=== PATIENT | female | born 1965 | race Two or more races ===

== ENCOUNTER 2019-03-23 19:21 | Inpatient (IN) | payer MEDICARE ==
[~2019-03-23] VITALS: Ht 165.1 cm; Wt 82.6 kg
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
[2019-03-23] MEDS ORDERED: SODIUM CHLORIDE 0.9% 1000ML 1,000 ML IV STA (19:55)
[2019-03-23] MEDS ORDERED: PANTOPRAZOLE 40 MG 10ML VIAL IV NR (20:00)
[2019-03-23] MEDS ORDERED: MORPHINE SULFATE INJ 4 MG/ML INJ 1ML IV NR (20:00)
[2019-03-23] MEDS ORDERED: ONDANSETRON HCL INJ 2MG/ML 2ML 2 MG/ML VIAL IV NR (20:00)
[2019-03-23 20:32] LABS: BASOPHILS # (AUTO) 0.1 (0.0-0.1); BASOPHILS % 0.7 % (0.0-1.0); EOSINOPHILS # (AUTO) 0.2 (0.0-0.4); EOSINOPHILS % 1.4 % (0.0-6.0); HEMATOCRIT 43.1 % (34.2-44.1); HEMOGLOBIN 14.4 g/dL (12.0-16.0); LYMPHOCYTES # (AUTO) 2.3 (1.0-3.2); LYMPHOCYTES % 22.3 % (18.0-39.1); MEAN CORPUSCULAR HEMOGLOBIN 27.9 pg (28-32); MEAN CORPUSCULAR HGB CONC 33.4 g/dL (31-35); MEAN CORPUSCULAR VOLUME 83.4 fL (81-99); MONOCYTES # (AUTO) 0.9 (0.2-0.8); MONOCYTES % 8.2 % (4.4-11.3); NEUTROPHILS % 67.1 % (38.7-80.0); PLATELET COUNT 343 x10e3/uL (140-360); RED BLOOD COUNT 5.17 x10e6/uL (3.6-5.1); RED CELL DISTRIBUTION WIDTH 13.2 % (11.7-14.4)
[2019-03-23 20:36] LABS: CLARITY,URINE SL CLOUDY (CLEAR); COLOR,URINE YELLOW (YELLOW)
[2019-03-23 20:37] LABS: BILIRUBIN,URINE NEGATIVE (NEGATIVE); KETONES,URINE NEGATIVE (NEGATIVE); LEUKOCYTE ESTERASE ,URINE NEGATIVE (NEGATIVE); NITRITE,URINE NEGATIVE (NEGATIVE); PROTEIN,URINE DIPSTICK NEGATIVE (NEGATIVE); URINE UROBILINOGEN 0.2 mg/dL (0.2 - 1)
[2019-03-23 20:46] LABS: BACTERIA,URINE RARE /HPF; EPITHELIAL CELLS,URINE FEW /LPF
[2019-03-23 20:52] LABS: ALBUMIN 3.5 g/dL (3.5-5.0); ALBUMIN/GLOBULIN RATIO 0.9 (0.8-2.0); ALKALINE PHOSPHATASE 103 IU/L (40-150); AMYLASE 93 U/L (25-125); BLOOD UREA NITROGEN 13 mg/dL (7-26); BUN/CREATININE RATIO 15 (6-25); CALCIUM 9.3 mg/dL (8.4-10.2); CARBON DIOXIDE 26 mmol/L (22-29); CHLORIDE 101 mmol/L (98-107); CREATINE KINASE 15 IU/L (29-168); CREATININE, SERUM 0.88 mg/dL (0.57-1.11); EST GLOMERULAR FILTRATION RATE > 60 ML/MIN (60-); GLUCOSE 310 mg/dL (74-118); LIPASE 512 U/L (8-78); SODIUM 137 mmol/L (136-145)
[2019-03-23 21:04] LABS: ALANINE AMINOTRANSFERASE < 6 IU/L (0-55)
[2019-03-23] MEDS: LEVOFLOXACIN 500MG/D5W 100ML 100 ML IV SCH (21:45)
[2019-03-23] MEDS: SODIUM CHLORIDE 0.9% 1000ML 1,000 ML IV SCH (21:45)
--- NOTE | 2019-03-23 22:40 | NUR ---
PATIENT WAS BROUGHT FROM ER IN A STRETCHER WITH C/O PANCREATITIS.ABD PAIN VOICED 11/03.ASSESSMENT DONE.NO RESP.DISTRESS.AMBULATES.VOIDED.DIABETIC ULCER NOTED TO RIGHT FOOT.IV TO RIGHT AC#20 PATENT.ORIENTED TO THE UNIT.BED LOCKED AND IN LOWEST POSITION.PHONE AND CALL LIGHT WITHIN REACH.INSTRUCTED TO CALL FOR ASSISTANCE NEEDED. PER THE REPORT FROM ER OKAY TO DO MRI MRCP TOMORROW AM.ER PHYSICIAN CALLED ALL THE CONSULTS.MAINTAINING NPO .
[2019-03-23 22:45] VITALS: BP 127/91
--- NOTE | 2019-03-23 23:03 | Diagnostic Imaging Report ---
EXAM: Right Upper Quadrant Ultrasound INDICATION: Severe abdominal pain. Gallstones. COMPARISON: None. TECHNIQUE: Transverse and longitudinal images of the right upper abdomen were obtained. FINDINGS: Liver: Size: 16.9 cm in the right midclavicular line, enlarged Appearance: Mildly increased echogenicity, smooth contour Mass: No focal masses Gallbladder: Stones/Sludge: Shadowing calculus within the gallbladder lumen. Wall: 0.3 cm Appearance: No wall thickening, pericholecystic fluid or hydrops. Sonographic Payne's Sign: Negative Bile Ducts: Intrahepatic Ducts: No dilatation Extrahepatic Ducts: Common bile duct measures 0.6 cm, no dilatation Pancreas: Visualized portions of the pancreatic head, neck and proximal body are normal. Kidneys: Length: Right 12.6 cm Echogenicity: Normal Collecting System: No hydronephrosis Stone: None Cyst/Mass: None Vessels: Aorta: Visualized portions are normal Inferior Vena Cava: Visualized portions are normal Main Portal Vein: 0.9 cm, normal size with hepatopetal flow. Free Fluid: No ascites or pleural effusion IMPRESSION: 1. Cholelithiasis without cholecystitis. No biliary dilatation. 2. Hepatomegaly and hepatic steatosis. Signed by: Dr. Liv Miranda M.D. on 03/23/2019 11:01 PM
[2019-03-23] MEDS: ONDANSETRON HCL INJ 2MG/ML 2ML 2 MG/ML VIAL IV PRN (23:28)
[2019-03-23] MEDS: MORPHINE SULFATE INJ 4 MG/ML INJ 1ML IV PRN (23:28)
[2019-03-24] VITALS (7 sets, daily range): BP systolic 100–135; BP diastolic 72–91
[2019-03-24] MEDS ORDERED: GABAPENTIN300 MG PO (01:29)
[2019-03-24] MEDS ORDERED: ASPIRIN325 MG PO (01:29)
[2019-03-24] MEDS ORDERED: HUMALOG100 UNIT/3 SC (01:29)
[2019-03-24] MEDS ORDERED: LISINOPRIL10 MG PO (01:29)
[2019-03-24] MEDS ORDERED: TIZANIDINE HCL4 M1 PO (01:29)
[2019-03-24] MEDS ORDERED: LANTUS 3ML100 UNITS/ SC (01:29)
[2019-03-24] MEDS ORDERED: PLAVIX75 MG PO (01:29)
[2019-03-24] MEDS ORDERED: HUMALOG100 UNIT/1 SC (01:29)
[2019-03-24] MEDS ORDERED: OXYCODONE HCL20 M1 PO (01:29)
[2019-03-24] MEDS: SODIUM CHLORIDE 0.9% 1000ML 1,000 ML IV SCH ×5 (02:59→22:22)
[2019-03-24] MEDS: ONDANSETRON HCL INJ 2MG/ML 2ML 2 MG/ML VIAL IV PRN ×3 (03:22→23:26)
[2019-03-24] MEDS: MORPHINE SULFATE INJ 4 MG/ML INJ 1ML IV PRN (03:22)
[2019-03-24 06:06] LABS: BASOPHILS # (AUTO) 0.1 (0.0-0.1); BASOPHILS % 0.8 % (0.0-1.0); EOSINOPHILS # (AUTO) 0.1 (0.0-0.4); EOSINOPHILS % 1.6 % (0.0-6.0); HEMATOCRIT 40.5 % (34.2-44.1); HEMOGLOBIN 13.3 g/dL (12.0-16.0); LYMPHOCYTES # (AUTO) 2.4 (1.0-3.2); LYMPHOCYTES % 26.9 % (18.0-39.1); MEAN CORPUSCULAR HEMOGLOBIN 27.4 pg (28-32); MEAN CORPUSCULAR HGB CONC 32.8 g/dL (31-35); MEAN CORPUSCULAR VOLUME 83.3 fL (81-99); MONOCYTES # (AUTO) 0.7 (0.2-0.8); MONOCYTES % 8.3 % (4.4-11.3); NEUTROPHILS # (AUTO) 5.5 (2.1-6.9); NEUTROPHILS % 62.2 % (38.7-80.0); PLATELET COUNT 319 x10e3/uL (140-360); RED BLOOD COUNT 4.86 x10e6/uL (3.6-5.1)
[2019-03-24 06:34] LABS: ALBUMIN 3.1 g/dL (3.5-5.0); ALBUMIN/GLOBULIN RATIO 0.9 (0.8-2.0); ALKALINE PHOSPHATASE 85 IU/L (40-150); ANION GAP 13.2 mmol/L (8-16); BLOOD UREA NITROGEN 6 mg/dL (7-26); BUN/CREATININE RATIO 8 (6-25); CALCIUM 8.5 mg/dL (8.4-10.2); CARBON DIOXIDE 25 mmol/L (22-29); CHLORIDE 103 mmol/L (98-107); CREATININE, SERUM 0.75 mg/dL (0.57-1.11); EST GLOMERULAR FILTRATION RATE > 60 ML/MIN (60-); GLUCOSE 276 mg/dL (74-118); POTASSIUM 4.2 mmol/L (3.5-5.1); SODIUM 137 mmol/L (136-145)
[2019-03-24 06:35] LABS: ALANINE AMINOTRANSFERASE < 6 IU/L (0-55)
[2019-03-24] MEDS ORDERED: MORPHINE SULFATE INJ 4 MG/ML INJ 1ML IV PRN (06:45)
[2019-03-24 06:51] LABS: AMYLASE 53 U/L (25-125); LIPASE 191 U/L (8-78)
--- NOTE | 2019-03-24 07:00 | NUR ---
BED SIDE SHIFT REPORT GIVEN TO ONCOMING RN.STABLE CONDITION.
[2019-03-24] MEDS: INSULIN LISPRO 100 UNIT/1 ML 3ML VIAL SQ SCH ×3 (07:58→18:29)
[2019-03-24] MEDS ORDERED: BUPIVACAINE 0.5%/EPI 30 ML SDV INJ ONE (09:12)
--- NOTE | 2019-03-24 09:48 | Diagnostic Imaging Report ---
MRI/MRCP of the abdomen, without contrast, 03/24/2019. History: Cholelithiasis. Comparison: Ultrasound 03/23/2019. TECHNIQUE: Multiplanar, multisequence images of the abdomen were acquired without the administration of intravenous gadolinium as per the MRCP protocol. Three-dimensional reconstructions were acquired and utilized by the dictating radiologist at the time of interpretation. Discussion: The gallbladder contains a single 1.4 cm round hypointense stone without evidence of pericholecystic fluid or wall thickening. There is no intrahepatic or extrahepatic ductal dilatation. The CBD measures 6.5 mm in diameter. There is no intraluminal filling defect. There is no pancreatic ductal dilatation. No pancreatic abnormality is seen. Evaluation of intra-abdominal organs is limited without IV contrast. The liver is enlarged measuring over 17 cm in length. The spleen, kidneys, and adrenal glands are unremarkable. There is no evidence of free fluid. IMPRESSION: Cholelithiasis without gallbladder wall thickening or choledocholithiasis. Signed by: Burt Danielson on 03/24/2019 9:45 AM
--- NOTE | 2019-03-24 09:53 | Consultation ---
DATE OF CONSULTATION: 03/24/2019 REASON FOR CONSULTATION: Gallstones and abdominal pain. HISTORY OF PRESENT ILLNESS: The patient is a pleasant 53-year-old female admitted through the emergency room complaining of abdominal pain for approximately a week, was associated with nausea and vomiting. The pain radiates to the back. She was initially seen at [facility], diagnosed with cholecystitis, pancreatitis, and discharged home. Apparently, the patient had an MRCP at that institution that revealed those findings. She now comes back to the [facility] Emergency room complaining of similar symptoms. The patient states that she has lost weight because she has been on a diet and she used to weigh 300 pounds. Current BMI is 30. She denied any other GI symptoms. The admission ultrasound reveals cholelithiasis, there is no ductal dilatation, the pancreas is normal, there are no masses. Admission laboratories reveal normal liver chemistries, normal electrolytes, blood sugar 261, amylase normal, and lipase is 191. White count is normal, hematocrit is 40.5, and platelets are normal. PAST MEDICAL HISTORY: Significant for hypertension, diabetes, and chronic back pain, on OxyContin on a regular basis. She has had a stent placement two years ago and the patient states she had an AL then, but she at this point denies any chest pain or shortness of breath. PREVIOUS SURGERIES: C-sections and hysterectomy. ALLERGIES: SHE HAS NO KNOWN ALLERGIES. SOCIAL HISTORY: She does not drink, but smokes. PHYSICAL EXAMINATION: GENERAL: Reveals a 53-year-old female, in no acute distress. She is awake and alert. HEAD, EYES, EARS, NOSE, AND THROAT: Reveals no acute process. LUNGS: Clear. HEART: Reveals regular sinus rhythm. ABDOMEN: Soft. There is some diffuse upper abdominal tenderness, but there are no masses. No rebound. There are healed Pfannenstiel incisions. There is no flank tenderness. EXTREMITIES: Reveal no clubbing, cyanosis, or edema. NEUROLOGICAL: Nonfocal. ASSESSMENT AND PLAN: Cholelithiasis, resolving pancreatitis with her normal ductal anatomy, normal liver chemistries and gallstones. I think at this point the best course of action is to proceed with laparoscopic cholecystectomy, possible open cholecystectomy. The indication, benefits, and risks have been discussed with the patient. She gives informed consent. Thank you very much for this consultation. MD KEVIN Humphrey/ROSHAN /[id number]
[2019-03-24] MEDS: HYDROMORPHONE 1MG/1ML INJ IV PRN ×4 (11:46→23:26)
--- NOTE | 2019-03-24 11:59 | History and Physical ---
CHIEF COMPLAINT: This is a 53-year-old female with a history of coronary artery disease, history of diabetes mellitus, history of hypertension, history of hyperlipidemia, comes in with abdominal pain. HISTORY OF PRESENT ILLNESS: Ms. Montano is a 53-year-old lady with a history of hypertension, hyperlipidemia, coronary artery disease status post stents, hypertension, hyperlipidemia, was in her usual state of health until about a week prior to admission. The patient had abdominal pain, epigastric in nature, went to 2 ERs and was turned away because of her insurance. The patient apparently did have gallstones and sludge in the gallbladder and was asked to go with her primary care physician. Primarily, the patient came in with abdominal pain, was found to have pancreatitis secondary to elevation of pancreatic enzymes. The patient admitted for acute pancreatitis, rule out gallstone pancreatitis. PAST MEDICAL HISTORY: 1. History of uncontrolled diabetes mellitus, insulin dependent. 2. Neuropathy. 3. History of coronary artery disease. 4. History of stents. 5. History of hyperlipidemia. 6. History of chronic pain with chronic pain management. MEDICATIONS: She takes at home: 1. Aspirin 325 mg. 2. Plavix 75 mg. 3. Gabapentin 300 mg 3 times a day. 4. Insulin glargine. 5. Insulin lispro. 6. Lisinopril. 7. Oxycodone 20 mg q.4 hours. 8. Tizanidine twice a day. PAST SURGICAL HISTORY: History of stents, history of hysterectomy, history of C-sections. No back surgeries. REVIEW OF SYSTEMS: Negative for chest pain. Positive for some shortness of breath. Positive for nausea and vomiting. No diarrhea. No constipation. Abdominal pain positive. No diplopia. No blurry vision and no history of headaches. SOCIAL HISTORY: Positive for smoker, approximately pack a day. No EtOH. No IV drug abuse either. ALLERGIES: ALLERGIC TO . PHYSICAL EXAMINATION: GENERAL: The patient is alert and oriented x3, in pain, pain is about 8/10 according to her. She has her morphine about three or 4 hours ago. VITAL SIGNS: Temperature is 97.0, pulse 68, respirations of 18, pulse oximetry of 97% on room air. HEENT: Normocephalic and atraumatic. The patient's pupils are reactive to light and accommodation. CVS: S1 and S2 normal. Regular rate and rhythm. ABDOMEN: Tender in the epigastrium. Bowel sounds positive. EXTREMITIES: No clubbing, no cyanosis and/or no edema. LABORATORY VALUES: White count is 10.4, hemoglobin 14.4, hematocrit of 43.1. Chemistries, sodium of 137, potassium 4.2, BUN of 6, creatinine 0.75, glucose of 276. Lipase is 512, amylase is 93, total protein 6.4, albumin of 3.1. Urine was essentially negative. IMAGING STUDIES: Done in the ED, gallbladder shows cholelithiasis without cholecystitis. No biliary dilatation, hepatomegaly and hepatic steatosis. ASSESSMENT: Ms. Leanna Montano with: 1. Cholecystitis. 2. Possible gallstone pancreatitis. 3. Uncontrolled diabetes. 4. Coronary artery disease. 5. Hypertension. 6. Hyperlipidemia. PLAN: Check MRCP. Check HIDA scan. Check lipid panel. Keep n.p.o., IV hydration. Consult with surgery and GI has been done. Further recommendation per clinical course. We will continue to monitor the patient. MD NICO Celeste/MODL /[id number]
[2019-03-24] MEDS ORDERED: FENTANYL CITRATE/PF 100MCG/2 ML INJ ONE ×2 (12:03→16:05)
--- NOTE | 2019-03-24 12:05 | NUR ---
RECEIVED REPORT FROM BLACK JACK DEALER; PT HAD LAP KAREEM, 4 TROCHAR SITES TO ABD, COVERED WITH FOAM TAPE. 300 ML RETRIEVED FROM STRAIGHT CATH. PT'S VITAL SIGNS FOLLOWS: 140/83, 76, 16, 98% ON 2L NC PT RECEIVED 0.5 DILAUDID AT 1146 AND 0.5 DILAUDID AGAIN AT 1153. PT ALSO RECEIVED 25 MCG FENTANYL AT 1200. PT PUT ON CLEAR LIQUID DIET; SCD'S AND [place] HOSE PLACED.
--- NOTE | 2019-03-24 12:12 | NUR ---
PT ARRIVED BACK TO ROOM 112 S/P SURGERY. PT AWAKE, NO SIGNS OF DISTRESS. IN STABLE CONDITION.
--- NOTE | 2019-03-24 12:20 | NUR ---
Visit made by SHAWNEE Garcia. Pastry Wrapper provided pastoral presence, hospitality, and supportive listening. Pastry Wrapper informed pt/family of the scope of [employer] and availability. EWA DENIS Pastry Wrapper Spiritual Care Department O: [phone] Pager: [phone] ([phone] calling from)
[2019-03-24] MEDS: INSULIN REGULAR, HUMAN 100 UNIT/1 ML 3ML VIAL SQ SCH ×2 (13:40→18:29)
[2019-03-24] MEDS ORDERED: MIDAZOLAM HCL 2 MG/2 ML VIAL ONE (16:05)
--- NOTE | 2019-03-24 16:30 | NUR ---
Nutrition Screen Note RD Recommendation for Physician: -Advance to GI soft diet when medically appropriate Plan of Care: RD following, monitoring for tolerance and adequacy Nutrition reason for involvement: Nutrition Risk Score MST 2 Primary Diagnose(s): cholecystitis, possible gallstone pancreatitis PMH: HTN, hyperlipidemia, CAD s/p stents, uncontrolled diabetes Ht: 65 in Wt:182 lb BMI: 30.3 kg/m2 IBW:[address] Assessment: (03/24/19) Chart reviewed. Labs and meds reviewed. Pt is a 53 year old female admitted with cholecystitis and possible gallstone pancreatitis. Pt had a lap cholecystectomy today. Pt is currently on a clear liquid diet. Prior to admission, pt reports eating >50% of meals. It is noted in H/P note that pt had lost weight due to being on a diet and used to weigh 300 lbs. No N/V/D/C or chewing/swallowing issues reported. Will continue to monitor. Current Diet: clear liquids Malnutrition Evaluation (03/24/2019) The patient does not meet criteria for a specified degree of malnutrition at this time. Will re-evaluate at follow-up as appropriate. Diet Education Needs Assessment: Diet education not indicated at this time, patient is on a temporary/transition diet. Nutrition Care Level: low Signed: Atiya Agrawal, RD, LD
[2019-03-24] MEDS: HYDROCODONE/APAP 7.5MG-325MG 1 EA TAB PO PRN ×2 (16:34→21:10)
[2019-03-24] MEDS ORDERED: ACETAMINOPHEN 1000 MG/100 ML IV SCH (18:00)
[2019-03-24] MEDS ORDERED: ROCURONIUM BROMIDE 10 MG/ML 5ML VIAL ONE (18:10)
[2019-03-24] MEDS ORDERED: SEVOFLURANE INHAL SOLN 250 ML PEN BTL ONE (18:10)
[2019-03-24] MEDS ORDERED: ONDANSETRON HCL INJ 2MG/ML 2ML 2 MG/ML VIAL ONE (18:10)
[2019-03-24] MEDS ORDERED: LIDOCAINE HCL 2% LOCAL INJ 5 ML SDV VIAL INJ ONE (18:10)
[2019-03-24] MEDS ORDERED: DEXAMETHASONE SOD PHOS INJ 4 MG/ML VIAL ONE (18:10)
[2019-03-24] MEDS ORDERED: PROPOFOL IV EMULSION 10 MG/ML 20 ML VIAL ONE (18:10)
[2019-03-24] MEDS ORDERED: ACETAMINOPHEN 1000 MG/100 ML IV PRN (18:15)
[2019-03-24] MEDS: PANTOPRAZOLE 40 MG 10ML VIAL IV SCH (18:27)
--- NOTE | 2019-03-24 19:10 | NUR ---
RECEIVED THE PATIENT IN REPORT.LYEING IN THE BED.4 TROCHAR SITES TO ABDOMEN C/D/I.NO RESP.DISTRESS .STABLE CONDITION.BED LOCKED AND IN LOWEST POSITION.PHONE AND CALL LIGHT WITHIN REACH.INSTRUCTED TO CALL FOR ASSISTANCE NEEDED.FAMILY MEMBER AT BED SIDE.
[2019-03-24] MEDS: LEVOFLOXACIN 500MG/D5W 100ML 100 ML IV SCH (20:54)
[2019-03-24] MEDS ORDERED: INSULIN GLARGINE 100 UNITS/ML VIAL SC SCH (21:00)
[2019-03-24] MEDS: KETOROLAC TROMETHAMINE 30 MG/ML VIAL IV PRN (21:51)
[2019-03-25] VITALS: BP 125/79
[2019-03-25] MEDS: INSULIN REGULAR, HUMAN 100 UNIT/1 ML 3ML VIAL SQ SCH ×3 (00:14→12:00)
[2019-03-25] MEDS: HYDROCODONE/APAP 7.5MG-325MG 1 EA TAB PO PRN ×3 (01:15→14:45)
[2019-03-25] MEDS: HYDROMORPHONE 1MG/1ML INJ IV PRN ×4 (03:00→11:29)
[2019-03-25 04:00] VITALS: BP 102/72
[2019-03-25] MEDS: KETOROLAC TROMETHAMINE 30 MG/ML VIAL IV PRN (05:27)
[2019-03-25 05:55] LABS: BASOPHILS % 0.3 % (0.0-1.0); EOSINOPHILS # (AUTO) 0.4 (0.0-0.4); EOSINOPHILS % 4.8 % (0.0-6.0); HEMATOCRIT 37.2 % (34.2-44.1); HEMOGLOBIN 11.9 g/dL (12.0-16.0); LYMPHOCYTES # (AUTO) 1.4 (1.0-3.2); LYMPHOCYTES % 15.6 % (18.0-39.1); MEAN CORPUSCULAR HEMOGLOBIN 27.8 pg (28-32); MEAN CORPUSCULAR VOLUME 86.9 fL (81-99); MONOCYTES # (AUTO) 0.8 (0.2-0.8); MONOCYTES % 9.2 % (4.4-11.3); NEUTROPHILS # (AUTO) 6.4 (2.1-6.9); NEUTROPHILS % 69.8 % (38.7-80.0); PLATELET COUNT 249 x10e3/uL (140-360); RED BLOOD COUNT 4.28 x10e6/uL (3.6-5.1); RED CELL DISTRIBUTION WIDTH 13.2 % (11.7-14.4)
[2019-03-25 06:12] LABS: ALANINE AMINOTRANSFERASE 25 IU/L (0-55); ALBUMIN 2.7 g/dL (3.5-5.0); ALBUMIN/GLOBULIN RATIO 0.8 (0.8-2.0); ALKALINE PHOSPHATASE 72 IU/L (40-150); AMYLASE 35 U/L (25-125); ANION GAP 14.2 mmol/L (8-16); BLOOD UREA NITROGEN 7 mg/dL (7-26); BUN/CREATININE RATIO 10 (6-25); CALCIUM 8.1 mg/dL (8.4-10.2); CARBON DIOXIDE 22 mmol/L (22-29); CHLORIDE 103 mmol/L (98-107); CREATININE, SERUM 0.68 mg/dL (0.57-1.11); EST GLOMERULAR FILTRATION RATE > 60 ML/MIN (60-); GLUCOSE 162 mg/dL (74-118); LIPASE 62 U/L (8-78); POTASSIUM 4.2 mmol/L (3.5-5.1); SODIUM 135 mmol/L (136-145)
[2019-03-25] MEDS: SODIUM CHLORIDE 0.9% 1000ML 1,000 ML IV SCH ×2 (06:23→09:56)
--- NOTE | 2019-03-25 07:00 | NUR ---
Bed side shift report given to oncoming rn.stable condition.
--- NOTE | 2019-03-25 07:00 | NUR ---
received pt from previous shift, pt resting in bed, pain to abd surgical sites,pt given times of next pain med
[2019-03-25] MEDS: INSULIN LISPRO 100 UNIT/1 ML 3ML VIAL SQ SCH ×2 (08:21→12:21)
[2019-03-25 08:22] VITALS: BP 118/75
[2019-03-25] MEDS: ONDANSETRON HCL INJ 2MG/ML 2ML 2 MG/ML VIAL IV PRN ×2 (08:22→11:29)
[2019-03-25 08:28] VITALS: BP 118/75
--- NOTE | 2019-03-25 09:13 | Progress Note ---
DATE: 03/25/2019 SUBJECTIVE: The patient is a 53-year-old lady comes in with acute cholecystitis and pancreatitis. Currently, the patient is status post laparoscopic cholecystectomy by Dr. Fall. The patient is complaining of some pain. Bowel sounds are positive. Bowel movements none. The patient has gas and flatus. No chest pains. No shortness of breath noted. OBJECTIVE: VITAL SIGNS: Temperature is 96.9, pulse 57, respirations 16, blood pressure is 102/72, pulse oximetry of 99%. HEENT: Normocephalic and atraumatic. Pupils reactive to light and accommodation. No icterus present. CVS: S1 and S2. Normal rate and rhythm. ABDOMEN: Tender in epigastrium. EXTREMITIES: No clubbing, no cyanosis, no edema. LABORATORY DATA: The patient's MRCP yesterday was cholelithiasis without gallbladder wall thickening. No choledocholithiasis. ASSESSMENT: Ms. Leanna Montano with acute cholecystitis, pancreatitis resolved, hypertension, hyperlipidemia, uncontrolled diabetes, coronary artery disease, and hyperlipidemia. PLAN: Continue to monitor the patient, on IV hydration. Advance food and also possible discharge in the morning. Further recommendation per clinical course. Surgery is following the patient. MD NICO Celeste/ROSHAN /[id number]
--- NOTE | 2019-03-25 10:12 | NUR ---
IM LETTER EXPLAINED AND GIVEN TO THE PT, SIGNED COPY PLACED IN THE CHART
[2019-03-25 12:14] VITALS: BP 123/60
--- NOTE | 2019-03-25 12:30 | NUR ---
dr hanks to see pt. dc pt if ok with dr cheng and dr thomas
--- NOTE | 2019-03-25 12:30 | NUR ---
pt states she is in pain and needs iv medication. pt told by dr hanks she can continue to take her oxycodone intermitently with tylenol #3, but do not take tylenol #3 and oxycodone together. pt verbalizes understanding
--- NOTE | 2019-03-25 12:39 | NUR ---
message left with dr thomas to ask if ok to dc pt
--- NOTE | 2019-03-25 12:39 | NUR ---
spoke with dr argentina cheng. ok to hilario pt
[2019-03-25] MEDS ORDERED: TYLENOL WITH C1 EACH PO (12:44)
--- NOTE | 2019-03-25 13:12 | NUR ---
SPOKE WITH DR PEREZ. JUSTIN FOR PT TO BE DC HOME, CONT HOME MEDS
[2019-03-25] MEDS: PANTOPRAZOLE 40 MG 10ML VIAL IV SCH (13:18)
--- NOTE | 2019-03-25 13:49 | Operative Report ---
DATE OF PROCEDURE: 03/24/2019 SURGEON: Cuong Bettencourt MD PREOPERATIVE DIAGNOSES: Cholelithiasis, cholecystitis, history of pancreatitis. POSTOPERATIVE DIAGNOSES: Cholelithiasis, cholecystitis, history of pancreatitis, hydrops of the gallbladder. PROCEDURE PERFORMED: Laparoscopic cholecystectomy with decompression of the gallbladder. INDICATIONS AND FINDINGS: The patient is a pleasant 53-year-old female admitted through the emergency room complaining of abdominal pain for approximately a week. The patient had nausea and vomiting. The pain radiated to the back. She was initially seen at [facility] about a week ago, diagnosed with cholecystitis, pancreatitis, and discharged home. The patient apparently had an MRCP at that institution that revealed those findings. This report is not available. The patient now presents to [facility] Emergency Room complaining of similar symptoms. The patient apparently has lost a significant amount of weight because of a diet. The patient denied any other GI symptoms. The patient so far at [facility] has had an ultrasound of the gallbladder that revealed cholelithiasis. There was no ductal dilatation. The pancreas appeared to be normal. There were no masses. The patient also underwent a cholangio MRCP that revealed no choledocholithiasis, no pancreatic lesions. Her liver chemistries, amylase and lipase are normal. This patient has a history of hypertension, diabetes, chronic back pain, on OxyContin on a regular basis. She has had two stents placement in the past and a history of an SC then. DESCRIPTION OF PROCEDURE: With the patient lying on the operative table in the supine position after administration of general anesthesia, she was prepped and draped for laparoscopic cholecystectomy. The procedure was begun by establishing pneumoperitoneum in the right upper quadrant midclavicular line because of large size pneumoperitoneum was insufflated with 15 mm of pressure and then the 5 mm trocar placed in the right midclavicular line and pneumoperitoneum insufflated to 15 mm of pressure and a 5 mm trocar placed in that location under direct vision with the camera. A 10/11 trocar was placed in the umbilical site and then finally we placed two other ports, a 10/11 trocar in the subxiphoid region and one final trocar in the right anterior axillary line making a 5 mm site trocar. We began the dissection by lysing adhesions of the omentum to the gallbladder and then able to expose the gallbladder. The adhesions to the omentum were with dense. We were able to expose the neck of the gallbladder. It was rather tense with a thickened wall and then there was difficult to wrap, so we decompressed that obtaining clear bile indicated chronic obstruction. We proceeded then to retract the gallbladder cephalad and laterally and inferiorly and through the neck of the gallbladder and began the dissection high in the neck, exposing the cystic duct which was very short and nondilated. There appeared to be a stone impacted in the neck. We continued the dissection until we identified the cystic artery and at that point, after having identified the triangle of safety and structures within, we then clipped the cystic duct and arteries between titanium clips. Then, we continued the dissection until we detached the gallbladder and removed it from the liver bed. We placed the gallbladder in an endobag and removed it through the umbilical port. It contained moderately large 2 stones. After we did that, we had re-insufflated the pneumoperitoneum and re-introduced the camera through the umbilical port and inspected the operative field. There was no evidence of bile leak, bleeding, or apparent bowel injury after we irrigated the right upper quadrant and removed the effluent fluid until, it was all clear. Then, we went ahead and released the pneumoperitoneum and closed the wound using 0-Vicryl for the umbilical fascia, 3-0 Vicryl for the subcutaneous tissue in that location as well as subxiphoid port and then the skin of all the ports was closed using will. A 0.25% Marcaine with epinephrine was given as local block at the end of the case. The patient tolerated the procedure well, was taken to the recovery room in stable condition. MD KEVIN Humphrey/STEVENL /[id number]
[2019-03-25 15:56] VITALS: BP 172/81
== END 2019-03-25 16:50 | disposition home or self-care (01) | DRG 417 ==
LOC: ER 19:21 → ERHOLD 21:41 → MED/SURG 22:38 → OBSVTOIN 03-24 11:35
PROVIDERS: ADMIT Family Medicine; ATTEND Family Medicine
PROC: 0FT44ZZ Resection of Gallbladder, Percutaneous Endoscopic Approach (ICD-10-PCS; principal; 2019-03-24 13:00)
DX: K80.13 Calculus of gallbladder with acute and chronic cholecystitis with obstruction (principal); K85.10 Biliary acute pancreatitis without necrosis or infection; E78.5 Hyperlipidemia, unspecified; I25.10 Atherosclerotic heart disease of native coronary artery without angina pectoris; Z95.5 Presence of coronary angioplasty implant and graft; G89.29 Other chronic pain; I10 Essential (primary) hypertension
CPT/HCPCS: 36415; 74181; 76705; 80053; 81001; 81025; 82150; 82550; 82553; 82948; 83690; 84484; 85025; 87086; 88304; 93005; 96374; 96375; 99284; C1766; G0378; J1100; J1170; J1815; J1817; J1885; J1956; J2001; J2250; J2270; J2405; J3010; J7030